=== PATIENT | male | born 1955 ===

== ENCOUNTER 2018-09-03 21:18 | Emergency (ER) | payer MEDICARE, MEDICAID ==
[2018-09-03 21:57] VITALS: RESP 16; O2SAT 94
[2018-09-03 23:02] LABS: INR 1.2; PROTHROMBIN TIME 13.5 Seconds (9.8-13.1)
[2018-09-03 23:05] LABS: PARTIAL THROMBOPLASTIN TIME 39.2 Seconds (25.6-37.1)
[2018-09-03 23:07] LABS: ALB/GLOB RATIO 0.9 (1.0-2.1); ALBUMIN 3.1 g/dL (3.5-5.0); CALCIUM 8.9 mg/dL (8.4-10.2)
[2018-09-03 23:09] LABS: BASO # 0.1 K/uL (0.0-0.2); BASO % 1.2 % (0.0-2.0); EOS # 0.2 K/uL (0.0-0.7); EOS % 4.7 % (0.0-4.0); HEMOGLOBIN 10.3 g/dL (12.0-18.0); LYMPH # 0.8 K/uL (1.0-4.3); LYMPH % 15.6 % (20.0-40.0); MEAN CELL VOLUME 97.5 fl (80.0-94.0); MEAN CORPUSCULAR HEMOGLOBIN 33.1 pg (27.0-31.0); MEAN CORPUSCULAR HGB CONC 33.9 g/dL (33.0-37.0); MEAN PLATELET VOLUME 7.7 fl (7.2-11.7); MONO # 0.5 K/uL (0.0-0.8); MONO % 10.5 % (0.0-10.0); NEUT # 3.3 K/uL (1.8-7.0); NRBC % 0.2 % (0.0-0.0); RBC 3.12 Mil/uL (4.40-5.90); RED CELL DISTRIBUTION WIDTH 14.3 % (11.5-14.5); WHITE BLOOD COUNT 4.8 K/uL (4.8-10.8)
--- NOTE | 2018-09-03 23:12 | ED PDOC ---
HPI: Wound Care - HPI Time Seen by Provider: 09/03/18 22:09 Chief Complaint (Nursing): Wound Check Chief Complaint (Provider): Wound Check History Per: Patient, Family (daughter) Exam Limitations: no limitations Onset/Duration Of Symptoms: Days, Intermittent Episodes Current Symptoms Are (Timing): Still Present Additional Complaint(s): 63 y/o male with a PMHx of HTN, CAD and End Stage Renal Disease on dialysis presents for evaluation of bleeding from AV shunt. Patient reports his last dialysis was this morning at 9 AM and since he has been bleeding from his AV Shunt in his left upper arm. History obtained from the patient and daughter. Johnathan aguayo report that since stating [facility] at the end of July for Coronary Artery Disease, patient has been excessively bleeding from the shunt. However, daughter states bleeding has never lasted this long. Patient notes of having intermittent nose bleeding and dental bleeding that resolve spontaneously. Patient reports of having developed lightheadedness about one hour prior to arrival thus prompting today's visit. Patient does not follow with a primary care provider. Of note, patient reports he just moved to the area from [place] in April and thus has not seen a PCP. Patient states he gets dialysis but does not see a mapper for regular visits yest. Patient reports of going to a hall manager, Dr. Hidalgo as he needed an urgent Stent in July due to heart failure. Otherwise, patient denies chest pain and shortness of breath. Patient additionally reports that since Sunday, he has been unable to hear from the right ear as well as developed numbness in the preauricular area of the right ear. Patient notes that on Sunday morning at around 2 AM, he had difficulty sleeping because he was hearing a high pitched noise in the ear and then it stopped and he realized when he woke up he was no longer able to hear in that same ear. PMD: no provider Pants Presser Automatic: no provider Floor And Wall Applier Liquid: Dr. Hidalgo Past Medical History Reviewed: Historical Data, Nursing Documentation, Vital Signs Vital Signs: Last Vital Signs Temp 98.0 F 09/03/18 21:53 Pulse 64 09/03/18 21:53 Resp 16 09/03/18 21:53 BP 168/105 H 09/03/18 21:53 Pulse Ox 94 L 09/03/18 21:53 - Medical History PMH: CAD, HTN, Hypothyroidism, End Stage Renal Disease (WITH DIALYSIS) - Surgical History Other surgeries: Angiocath and AV Shunt in left upper arm - Family History Family History: States: No Known Family Hx - Social History Current smoker - smoking cessation education provided: No - Allergies Allergies/Adverse Reactions: Allergies Allergy/AdvReac Type Severity Reaction Status Date / Time hydrocodone Allergy RASH Verified 09/03/18 21:53 moxifloxacin [From Avelox] Allergy RASH Verified 09/03/18 21:53 Review of Systems ROS Statement: Except As Marked, All Systems Reviewed And Found Negative (as per HPI) Constitutional: Positive for: Other (bleeding from AV shunt in the left upper arm. ) ENT: Positive for: Other (intermittent nose bleed and dental bleeding. difficulty hearing of the right ear.) Cardiovascular: Negative for: Chest Pain Respiratory: Negative for: Shortness of Breath Neurological: Positive for: Numbness (to the preauricular area of the right ear), Other (lightheadednesss) Physical Exam - Reviewed Nursing Documentation Reviewed: Yes Vital Signs Reviewed: Yes - Physical Exam Appears: Positive for: No Acute Distress Head Exam: Positive for: ATRAUMATIC, NORMOCEPHALIC Skin: Positive for: Warm, Dry, Pallor Eye Exam: Positive for: EOMI, PERRL ENT: Positive for: TM Is/Are (TMs bilaterally are normal. ) Neck: Positive for: Painless ROM, Supple Cardiovascular/Chest: Positive for: Regular Rate, Rhythm. Negative for: Murmur Respiratory: Positive for: Normal Breath Sounds. Negative for: Respiratory Distress Gastrointestinal/Abdominal: Positive for: Soft. Negative for: Tenderness Extremity: Positive for: Other (Left upper arm in pressure dressing that was just placed by nurse prior to my evaluation. Deferred evaluation until pressure dressing in place for at least an hour. ) Neurological/Psych: Positive for: Awake, Alert, Symmetric/Intact Strength, Other (Subjectively decreased ability to hear from the right side and light touch decreased on the preauricular area of the right ear) - Laboratory Results Result Diagrams: 09/03/18 22:45 09/03/18 22:45 Lab Results: PT 13.5 Seconds (9.8-13.1) H 09/03/18 22:45 INR 1.2 09/03/18 22:45 APTT 39.2 Seconds (25.6-37.1) H 09/03/18 22:45 Total Bilirubin 0.5 mg/dl (0.2-1.3) 09/03/18 22:45 AST 34 U/L (17-59) 09/03/18 22:45 ALT 29 U/L (21-72) 09/03/18 22:45 Alkaline Phosphatase 118 U/L (38-126) 09/03/18 22:45 Total Protein 6.4 G/DL (6.3-8.2) 09/03/18 22:45 Albumin 3.1 g/dL (3.5-5.0) L 09/03/18 22:45 Globulin 3.4 gm/dL (2.2-3.9) 09/03/18 22:45 Albumin/Globulin Ratio 0.9 (1.0-2.1) L 09/03/18 22:45 - ECG O2 Sat by Pulse Oximetry: 94 (RA) Pulse Ox Interpretation: Normal Medical Decision Making Medical Decision Making: Time: 2230 Impression: Bleeding post dialysis Rule out anemia Plan: -- IV Insertion -- Prothrombin Time -- PTT -- CBC with Differentials -- EKG -- CMP -- Type and Screen Time: 2313 Plan: -- CT Head w/o Contrast Time: 2330 -- Patient endorsed to Dr. Fields, pending CT Head. Scribe Attestation: Documented by Monika Rose, acting as a scribe for Fina Stokes MD. Provider Scribe Attestation: All medical record entries made by the Scribe were at my direction and personally dictated by me. I have reviewed the chart and agree that the record accurately reflects my personal performance of the history, physical exam, medical decision making, and the department course for this patient. I have also personally directed, reviewed, and agree with the discharge instructions and disposition. Disposition - Clinical Impression Clinical Impression: Bleeding from dialysis shunt - Patient ED Disposition Is Patient to be Admitted: Transfer of Care - Disposition Referrals: Brandon Chou MD [Primary Care Provider] - Disposition: Transfer of Care Disposition Time: 23:31 Condition: IMPROVED Instructions: Arteriovenous Fistula for Dialysis Forms: [facility] (Danish) Print Language: ARMENIAN Patient Signed Over To: Cesar Fields Handoff Comments: PENDING CT HEAD
--- NOTE | 2018-09-04 00:06 | ED PDOC ---
- Laboratory Results Result Diagrams: 09/03/18 22:45 09/03/18 22:45 Lab Results: PT 13.5 Seconds (9.8-13.1) H 09/03/18 22:45 INR 1.2 09/03/18 22:45 APTT 39.2 Seconds (25.6-37.1) H 09/03/18 22:45 Total Bilirubin 0.5 mg/dl (0.2-1.3) 09/03/18 22:45 AST 34 U/L (17-59) 09/03/18 22:45 ALT 29 U/L (21-72) 09/03/18 22:45 Alkaline Phosphatase 118 U/L (38-126) 09/03/18 22:45 Total Protein 6.4 G/DL (6.3-8.2) 09/03/18 22:45 Albumin 3.1 g/dL (3.5-5.0) L 09/03/18 22:45 Globulin 3.4 gm/dL (2.2-3.9) 09/03/18 22:45 Albumin/Globulin Ratio 0.9 (1.0-2.1) L 09/03/18 22:45 - ECG O2 Sat by Pulse Oximetry: 94 (RA) Pulse Ox Interpretation: Normal Medical Decision Making Medical Decision Making: Time: 2329 -- Patient endorsed to me by Dr. Stokes, pending CT head and wound check. Time: 35 EXAM: CT Head without Intravenous Contrast. CLINICAL HISTORY: Dizziness right ear hearing loss TECHNIQUE: Axial computed tomography images of the head/brain without intravenous contrast. 822.85 mGy-cm COMPARISON: None provided. FINDINGS: BRAIN No acute intraparenchymal hemorrhage. No mass lesion. No CT evidence for acute territorial infarct. No midline shift or extra-axial collections. Mild prominence of ventricles and sulci compatible with mild atrophy. VENTRICLES: No hydrocephalus. ORBITS: The orbits are unremarkable. SINUSES AND MASTOIDS: The paranasal sinuses and mastoid air cells are clear. BONES: No fracture. SOFT TISSUES: Unremarkable. IMPRESSION: No acute intracranial abnormality. Mild atrophy. Electronically signed on Sep 04, 2018 12:36:16 AM EDT by: Margarito Augustin M.D., Certified by ABR, MSK, Neuroradiology Time: 213 -- Took down dressing and noted small continuous oozing at the AV Fistula site. Xeroform placed and another dressing applied Time: 313 -- Dressing fully taken down. Site noted to have no bleeding. Patient is able to move arm fully without any bleeding. Patient advised to follow up with a PCP and taximeter repairer for further management. Scribe Attestation: Documented by Monika Rose, acting as a scribe for Cesar Fields MD. Provider Scribe Attestation: All medical record entries made by the Scribe were at my direction and personally dictated by me. I have reviewed the chart and agree that the record accurately reflects my personal performance of the history, physical exam, medical decision making, and the department course for this patient. I have also personally directed, reviewed, and agree with the discharge instructions and disposition. Disposition - Clinical Impression Clinical Impression: Bleeding from dialysis shunt - POA Present On Arrival: None - Disposition Referrals: Brandon Chou MD [Primary Care Provider] - Disposition: Routine/Home Disposition Time: 03:14 Condition: IMPROVED Instructions: Arteriovenous Fistula for Dialysis Forms: [facility] (Bruneian) Print Language: IRANIAN
[2018-09-04 04:00] VITALS: BP 166/74; PULSE 59; TEMP 97.4
--- NOTE | 2018-09-04 08:58 | CARD ---
APPROVED REPORT Date of service: 09/03/2018 EKG Measurement Heart [id number] <Conclusion> Sinus rhythm with 1st degree AV block Left posterior fascicular block ST & T wave abnormality, consider inferolateral ischemia Abnormal ECG
--- NOTE | 2018-09-04 10:35 | CT ---
Date of service: 09/03/2018 PROCEDURE: CT HEAD WITHOUT CONTRAST. HISTORY: Dizziness. RIGHT ear hearing loss COMPARISON: No prior study available comparison. TECHNIQUE: Axial computed tomography images were obtained through the head/brain without intravenous contrast. Radiation dose: Total exam DLP = 822.85 mGy-cm. This CT exam was performed using one or more of the following dose reduction techniques: Automated exposure control, adjustment of the mA and/or kV according to patient size, and/or use of iterative reconstruction technique. FINDINGS: HEMORRHAGE: No acute parenchymal, subarachnoid nor extra-axial hemorrhage. BRAIN: Mild chronic periventricular white matter ischemic changes seen extending peripherally into the deep and subcortical white matter both cerebral hemispheres. Moderate generalized volume loss. Dense vascular calcifications of the carotid siphons and vertebral arteries.. There also dense vascular calcifications of the distal margins of the extracranial internal carotid arteries and to a lesser degree vertebral arteries. VENTRICLES: No obstructive hydrocephalus. CALVARIUM: There are no acute calvarial fractures. Extensive scalp vascular calcifications are present consistent with underlying IDDM however clinical correlation recommended. PARANASAL SINUSES: There is thickening and sclerosis of the posterolateral lozano both maxillary antra. MASTOID AIR CELLS: Unremarkable as visualized. No inflammatory changes. OTHER FINDINGS: Changes of bilateral cataract surgery are present. IMPRESSION: No acute intracranial hemorrhage. Mild chronic white matter ischemic changes with moderate generalized volume loss.
== END 2018-09-04 03:30 | disposition home or self-care (01) ==
LOC: H.ER 21:18
DX: T82.838A Hemorrhage due to vascular prosthetic devices, implants and grafts, initial encounter (principal); Y84.1 Kidney dialysis as the cause of abnormal reaction of the patient, or of later complication, without mention of misadventure at the time of the procedure; I25.10 Atherosclerotic heart disease of native coronary artery without angina pectoris; I12.0 Hypertensive chronic kidney disease with stage 5 chronic kidney disease or end stage renal disease; N18.6 End stage renal disease; Z99.2 Dependence on renal dialysis